=== PATIENT | male | born 1940 | race Caucasian/White ===

== ENCOUNTER 2017-07-16 10:55 | Outpatient (CLI) | payer MEDICARE ==
--- NOTE | 2017-07-16 13:51 | MRI ---
MR OF THE ABDOMEN WITH AND WITHOUT CONTRAST: Indication: Evaluate for choledocholithiasis. Comparison: ERCP 02-14-10 Technique: Multiplanar, multisequence MR images were obtained of the abdomen with and without contras t utilizing 20 cc of MultiHance and MRCP protocol. FINDINGS: The common bile duct remains enlarged measuring 1.7 cm. Gallbladder is surgically absent. There is la yered bile present within the hepatic biliary ducts as well as the common bile duct. There are some l ayering nondependent gas within portions of the left intrahepatic biliary system as well as the commo n bile duct. There are more serpiginous and punctate regions of low signal intensity which may reflec t gallbladder sludge or small stones. The pancreatic duct is of normal caliber. Visualized pancreas has a normal appearing signal intensity . Adrenal glands appear within normal limits. Spleen appears within normal limits. There are moderately prominent left renal peripelvic cysts. The largest is seen within the superior p ole measuring 3.5 cm. There is a 1 cm cyst involving the superior pole of the right kidney. No definite abnormal region of enhancement is evident within the liver, pancreas or spleen. Small cys ts are suspected within the superior pole of the spleen. No abnormal enhancement is seen involving th e intrahepatic biliary tree. IMPRESSION: 1. Post-surgical changes of prior cholecystectomy. There is pneumobilia present within the biliary sy stem slightly limiting image detail. There are suspected small stones and gallbladder sludge likely p resent within the common bile duct. 2. No evidence of active inflammatory change seen involving the pancreas. 3. Bilateral renal cysts. 4. No abnormal enhancement demonstrated. POS: [facility]
== END 2017-07-16 10:56 | disposition home or self-care (01) ==
LOC: MRI 10:55
PROVIDERS: ATTEND Internal Medicine Gastroenterology
DX: K80.50 Calculus of bile duct without cholangitis or cholecystitis without obstruction (principal); R10.13 Epigastric pain; N28.1 Cyst of kidney, acquired; Z90.49 Acquired absence of other specified parts of digestive tract; Z98.890 Other specified postprocedural states
CPT/HCPCS: 74183

== ENCOUNTER 2017-07-20 09:50 | Day surgery (SDC) | payer MEDICARE ==
[2017-07-17 16:27] VITALS: BMI 25.9
[2017-07-20] MEDS ORDERED: Iothalamate Meglumine 60% 50 ML VIAL FS ONE (11:45)
[2017-07-20] MEDS ORDERED: Indomethacin 50 MG SUPP ONE (12:02)
[2017-07-20] MEDS ORDERED: Midazolam HCl 2 mg/2 ml Vial ONE (12:12)
[2017-07-20] MEDS ORDERED: Fentanyl 100 MCG/2 ML VIAL ONE (12:12)
[2017-07-20] MEDS ORDERED: cefTRIAXone\\ROCEPHIN 2 GM in Sodium Chloride 0.9% 100 ML IVPB SCH (12:15)
[2017-07-20] MEDS ORDERED: Indomethacin 50 MG SUPP PR SCH (12:15)
[2017-07-20] MEDS ORDERED: ePHEDrine/0.9% NaCl/PF SYRINGE 50 mg/10 ml ONE (12:34)
[2017-07-20] MEDS ORDERED: Glycopyrrolate 0.2 MG/ML 5 ML SYRINGE ONE (12:34)
[2017-07-20] MEDS ORDERED: Ondansetron HCl/PF 4 MG/2 ML Vial ONE (12:34)
[2017-07-20] MEDS ORDERED: Propofol 200 MG/20 ML VIAL ONE (12:34)
[2017-07-20] MEDS ORDERED: Lidocaine 1% PF 5 ML VIAL ONE (12:34)
[2017-07-20] MEDS ORDERED: Dexamethasone 20 MG/5 ML VIAL ONE (12:34)
--- NOTE | 2017-07-20 13:48 | OP ---
DATE OF PROCEDURE: 07/20/2017 PROCEDURE PERFORMED: Endoscopic retrograde cholangiopancreatography with stone extraction and papill otomy. PHYSICIAN: Huber Morgan M.D. PREMEDICATION: Given by Anesthesiology department. PREPROCEDURE DIAGNOSIS: Evidence of choledocholithiasis on magnetic resonance cholangiopancreatograp hy. POSTPROCEDURE DIAGNOSES: 1. Choledocholithiasis. 2. Status post sphincterotomy extension. PROCEDURE IN DETAIL: Written consent was obtained prior to procedure. After adequate sedation, side -viewing endoscope was advanced down the stomach through pylorus into the duodenum. The ampulla was visualized with evidence of prior sphincterotomy. A 15 mm balloon was then cannulated into the commo n bile duct. Injection of contrast initially showed air bubbles that was evacuated. There were larg e over filling defects noted in the distal duct. The balloon was then used to sweep the duct and ext ract the filling defects. There were appears to be large coalescing cholesterol type stone that were extracted in three large pieces. Using a ultratome, the sphincterotomy site was further extended to enlarge the opening. A final sweep using the 15 mm balloon showed a normal occlusive cholangiogram with prompt flow after withdrawing the catheter. Patient tolerated the procedure well without any im mediate complication. ASSESSMENT: 1. Large distal common bile duct stone, status post extraction. 2. Status post sphincterotomy extension. RECOMMENDATIONS: 1. Observe and discharged to home. 2. Follow up LFT in 2 weeks.
--- NOTE | 2017-07-20 14:11 | RAD ---
ERCP: Date: 07/20/17 COMPARISON: 02/14/10. HISTORY: Choledocholithiasis. FINDINGS/IMPRESSION: Limited intraoperative fluoroscopic views from an ERCP were submitted for interpretation. The common bile duct is enlarged. No obvious filling defects are seen within the common bile duct. There is mild central intrahepatic biliary dilatation. POS: [facility]
== END 2017-07-20 15:00 | disposition home or self-care (01) ==
LOC: SDC 09:50
PROVIDERS: ATTEND Internal Medicine Gastroenterology
PROC: 0FC98ZZ Extirpation of Matter from Common Bile Duct, Via Natural or Artificial Opening Endoscopic (ICD-10-PCS; principal; 2017-07-20)
PROC: 0F798ZZ Dilation of Common Bile Duct, Via Natural or Artificial Opening Endoscopic (ICD-10-PCS; 2017-07-20)
DX: K80.50 Calculus of bile duct without cholangitis or cholecystitis without obstruction (principal); I10 Essential (primary) hypertension; E78.5 Hyperlipidemia, unspecified; I25.10 Atherosclerotic heart disease of native coronary artery without angina pectoris; N40.0 Benign prostatic hyperplasia without lower urinary tract symptoms; Z79.01 Long term (current) use of anticoagulants; Z79.82 Long term (current) use of aspirin; Z79.2 Long term (current) use of antibiotics; Z79.899 Other long term (current) drug therapy; Z95.1 Presence of aortocoronary bypass graft; Z90.49 Acquired absence of other specified parts of digestive tract
CPT/HCPCS: 74330; J0696; J1100; J2001; J2250; J2405; J2704; J3010; J7050; Q9961

== ENCOUNTER 2019-10-21 14:36 | Outpatient (CLI) | payer MEDICARE, OTHER ==
[2019-10-22 13:14] LABS: SARS-CoV-2 MS2 Positive; SARS-CoV-2 N Gene Negative; SARS-CoV-2 S Gene Negative; SARS-CoV-2 orf1ab Negative
== END 2019-10-21 14:37 | disposition home or self-care (01) ==
LOC: LABBT 14:36
PROVIDERS: ATTEND Internal Medicine Gastroenterology
DX: Z01.812 Encounter for preprocedural laboratory examination (principal); Z11.59 Encounter for screening for other viral diseases; K80.50 Calculus of bile duct without cholangitis or cholecystitis without obstruction; R94.5 Abnormal results of liver function studies; R10.13 Epigastric pain; Z86.010 Personal history of colon polyps
CPT/HCPCS: 87635; U0003

== ENCOUNTER 2019-10-26 06:28 | Day surgery (SDC) | payer MEDICARE ==
[2019-10-21 14:56] VITALS: BMI 26.6
[2019-10-26] MEDS ORDERED: Iothalamate Meglumine 60% 30 ML VIAL FS ONE (06:55)
[2019-10-26] MEDS ORDERED: Indomethacin 50 MG SUPP ONE (06:55)
[2019-10-26] MEDS ORDERED: Fentanyl 100 MCG/2 ML VIAL ONE (06:58)
[2019-10-26] MEDS ORDERED: Midazolam HCl 2 mg/2 ml Vial ONE (08:13)
[2019-10-26] MEDS ORDERED: Ketamine 50 MG/ML (10ML VIAL) ONE (08:14)
[2019-10-26] MEDS ORDERED: SUGAMMADEX SODIUM 200 MG/2 ML VIAL ONE (09:12)
[2019-10-26] MEDS ORDERED: cefTRIAXone\\ROCEPHIN 2 GM VIAL ONE (09:13)
[2019-10-26] MEDS ORDERED: PROPOFOL 200 MG/20 ML VIAL ONE (09:25)
[2019-10-26] MEDS ORDERED: Dexamethasone 20 MG/5 ML VIAL ONE (09:25)
[2019-10-26] MEDS ORDERED: EPHEDRINE 25 MG/5 ML SYRINGE ONE (09:25)
[2019-10-26] MEDS ORDERED: Rocuronium Bromide 10 MG/ML (10ML VIAL) ONE (09:25)
[2019-10-26] MEDS ORDERED: PHENYLEPHRINE-NS 100 MCG/ML 10 ML SYRINGE ONE (09:25)
[2019-10-26] MEDS ORDERED: Ketorolac Tromethamine 30 MG/ML VIAL ONE (09:25)
[2019-10-26] MEDS ORDERED: Lidocaine 1% PF 5 ML VIAL ONE (09:25)
[2019-10-26] MEDS ORDERED: Ondansetron PF 4 MG/2 ML Vial ONE (09:25)
[2019-10-26] MEDS ORDERED: hydrALAZINE 20 MG/ML VIAL ONE (10:23)
[2019-10-26] MEDS ORDERED: hydrALAZINE 20 MG/ML VIAL SLOW IVP SCH (10:30)
--- NOTE | 2019-10-26 11:39 | OP ---
DATE OF PROCEDURE: 10/26/2019 PROCEDURE: Endoscopic retrograde cholangiopancreatography with stone extraction. PREMEDICATION: Given by Anesthesiology Department. PREPROCEDURE DIAGNOSES: 1. Abdominal pain with abnormal liver profile. 2. History of choledocholithiasis. POSTPROCEDURE DIAGNOSIS: Three large stones in dilated common bile duct, status post extraction. DESCRIPTION OF PROCEDURE: Written consents were obtained prior to procedure. After adequate sedation, the side-viewing endoscope was advanced down the stomach to the pylorus into the duodenum. The previous sphincterotomy was seen and appears to be widely patent. A 15 to 18 biliary balloon was then used to cannulate the common bile duct. The balloon was deployed and contrast was administered. The fluoroscopy was personally reviewed by me. The common bile duct was dilated to approximately 16 mm to 17 mm and tapered somewhat toward the distal end. Three filling defects measuring between 8 to 12 mm were seen. The intrahepatic biliary tree did fill, then it was free of any filling defect. The balloon was used to extract the smaller defect. A biliary basket was then attempted to use to extract the remainder stone, but it was unsuccessful in wrapping around the stone despite prolonged attempt. Decision was made to place a biliary stent. The guide apparatus and catheter were then placed into the bile duct. A 5 cm 11.5 Guamanian biliary stent was then placed, advanced to the endoscope. However, the stent was stuck at the end of the scope and could not be removed. The instrument was then removed. Repeat endoscopy was performed using a new side-viewing endoscope. The stomach pressure was then used to cannulate the bile duct, then was able to crush the stone. The remaining debris was able to be extracted using a 15 biliary balloon. Occlusive cholangiogram was performed and was free of any defect with prompt excretion of contrast. The instrument was then fully removed. The patient tolerated the procedure well. ASSESSMENT: Choledocholithiasis, 3 large stones, removed. PLAN: 1. The patient will be discharged home. 2. Will follow up Telehealth in 2 weeks with repeat LFT. Job ID: [id number] MTDD
--- NOTE | 2019-10-26 12:15 | RAD ---
ERCP: HISTORY: Biliary stones. FINDINGS: A series of 5 films were presented for interpretation. These show filling defects within the common bile duct with a balloon catheter in place. Final images show a definite decrease in the number of f illing defects. On the final image I cannot definite exclude there being a filling defect near the b ifurcation into the right and left hepatic ducts. IMPRESSION: ERCP findings as above. POS: [facility]
== END 2019-10-26 11:35 | disposition home or self-care (01) ==
LOC: SDC 06:28
PROVIDERS: ATTEND Internal Medicine Gastroenterology
PROC: 0FC98ZZ Extirpation of Matter from Common Bile Duct, Via Natural or Artificial Opening Endoscopic (ICD-10-PCS; principal; 2019-10-26)
DX: K80.50 Calculus of bile duct without cholangitis or cholecystitis without obstruction (principal); K21.9 Gastro-esophageal reflux disease without esophagitis; I10 Essential (primary) hypertension; E78.00 Pure hypercholesterolemia, unspecified; I48.91 Unspecified atrial fibrillation; Z79.01 Long term (current) use of anticoagulants; Z79.82 Long term (current) use of aspirin; Z79.899 Other long term (current) drug therapy; Z86.010 Personal history of colon polyps; Z91.040 Latex allergy status; Z91.048 Other nonmedicinal substance allergy status; Z95.1 Presence of aortocoronary bypass graft
CPT/HCPCS: 74330; J0360; J0696; J1100; J1610; J1885; J2001; J2250; J2405; J2704; J3010

== ENCOUNTER 2020-03-16 08:49 | Outpatient (CLI) | payer MEDICARE, OTHER ==
[2020-03-17 14:55] LABS: SARS-CoV-2 MS2 Positive; SARS-CoV-2 N Gene Negative; SARS-CoV-2 S Gene Negative; SARS-CoV-2 by NAA Not Detected (NotDetected); SARS-CoV-2 orf1ab Negative
== END 2020-03-16 08:50 | disposition home or self-care (01) ==
LOC: LABBT 08:49
PROVIDERS: ATTEND Internal Medicine Gastroenterology
DX: Z20.828 Contact with and (suspected) exposure to other viral communicable diseases (principal)
CPT/HCPCS: 87635; U0003

== ENCOUNTER 2020-03-21 08:30 | Day surgery (SDC) | payer MEDICARE ==
[2020-03-20 14:50] VITALS: BMI 26.6
[2020-03-21] MEDS ORDERED: Levofloxacin 500 mg/D5W 100 ml Premix Bag ONE (09:24)
[2020-03-21] MEDS ORDERED: Fentanyl 100 MCG/2 ML VIAL ONE (10:36)
[2020-03-21] MEDS ORDERED: PROPOFOL 200 MG/20 ML VIAL ONE (10:38)
[2020-03-21] MEDS ORDERED: PHENYLEPHRINE-NS 100 MCG/ML 10 ML SYRINGE ONE (10:38)
[2020-03-21] MEDS ORDERED: Ondansetron PF 4 MG/2 ML Vial ONE (10:38)
[2020-03-21] MEDS ORDERED: Rocuronium Bromide 10 MG/ML (10ML VIAL) ONE (10:38)
[2020-03-21] MEDS ORDERED: Dexamethasone 20 MG/5 ML VIAL ONE (10:38)
[2020-03-21] MEDS ORDERED: Lidocaine 1% PF 5 ML VIAL ONE ×2 (10:38)
[2020-03-21] MEDS ORDERED: Iothalamate Meglumine 60% 50 ML VIAL FS ONE (10:46)
[2020-03-21] MEDS ORDERED: Indomethacin 50 MG SUPP ONE ×3 (10:46→10:51)
[2020-03-21] MEDS ORDERED: SUGAMMADEX SODIUM 200 MG/2 ML VIAL ONE (10:48)
[2020-03-21] MEDS ORDERED: cefTRIAXone\\ROCEPHIN 2 GM VIAL ONE (11:07)
[2020-03-21] MEDS ORDERED: Sodium Chloride 0.9% 100 ML ONE (11:08)
[2020-03-21] MEDS ORDERED: Phenylephrine 10 MG/ML VIAL ONE (11:46)
--- NOTE | 2020-03-21 12:11 | RAD ---
EXAM: ERCP HISTORY: Cholelithiasis COMPARISON: None FINDINGS: Limited intraoperative fluoroscopic views were taken during a an ERCP. Common bile duct is enlarged. There appear to be multiple filling defects in the common bile duct on the initial images which are not seen on the latter images after a balloon was placed. No leakage from the common bile duct. No abnormality of the intrahepatic bile ducts. IMPRESSION: Likely removal of common bile duct material
[2020-03-21] MEDS ORDERED: Labetalol HCl 100 MG/20 ML VIAL ONE (12:22)
[2020-03-21] MEDS ORDERED: Morphine 4 MG/ML VIAL ONE (12:38)
[2020-03-21] MEDS ORDERED: hydrALAZINE 20 MG/ML VIAL ONE (12:53)
[2020-03-21 14:31] LABS: #Lymphocytes 0.8 thou/uL (1.20-3.40); #Monocytes 0.1 thou/uL (0.11-0.59); #Neutrophils 7.3 thou/uL (1.40-6.50); %Basophils 0.3 % (0.0-1.0); %Eosinophils 0.3 % (0.0-10.0); %Lymphocytes 9.5 % (21.0-51.0); Hemoglobin 16.1 g/dL (14.0-18.0); Mean Corpuscular HGB CONC 32.5 g/dL (32.0-36.0); Mean Corpuscular Hemoglobin 31.4 pg (27.0-31.0); Mean Corpuscular Volume 96.5 fL (78.0-98.0); Platelet Count 220 thou/uL (130-400); RBC Distribution Width 13.4 % (11.5-14.5); Red Blood Cell (RBC) Count 5.14 mill/uL (4.70-6.10); White Blood Cell (WBC) Count 8.2 thou/uL (4.8-10.8)
[2020-03-21 14:38] LABS: INR-International Normal Ratio 1.1; PTT 29.1 sec (22.9-36.1); Prothrombin Time 14.7 sec (12.0-14.7)
[2020-03-21 14:52] LABS: Anion Gap 16 mmol/L (10-20); BUN (Urea Nitrogen) 14 mg/dL (8.4-25.7); Calc. Creatinine Clearance 72 mL/min (70-130); Calcium 8.8 mg/dL (7.8-10.44); Carbon Dioxide 24 mmol/L (23-31); Chloride 104 mmol/L (98-107); Estimated GFR-MDRD 77; Glucose 128 mg/dL (83-110); Potassium 4.4 mmol/L (3.5-5.1); Sodium 140 mmol/L (136-145)
--- NOTE | 2020-03-21 17:12 | OP ---
DATE OF PROCEDURE: 03/21/2020 PROCEDURE PERFORMED: Endoscopic retrograde cholangiopancreatography with papillotomy and biliary stent placement and stone extraction. PREMEDICATION: Given by Anesthesiology Department. PREPROCEDURE DIAGNOSIS: Choledocholithiasis by MRCP. POSTPROCEDURE DIAGNOSES: 1. Large 2 cm stone and a smaller 1 cm stone. 2. Dilated common bile duct. 3. Papillotomy extension. DESCRIPTION OF PROCEDURE: Written consents were obtained prior to procedure. After adequate sedation, the side-viewing endoscope was advanced down the stomach through the pylorus into duodenum. The ampulla was visualized. The previous papillotomy site was visualized. The opening appears to have become smaller, stricturing down. Papillotome was introduced into the common bile duct with ease. Opacification of the bile duct showed a large 2 cm oval shaped stone in the mid common bile duct and a smaller 1 cm stone in the upper bile duct. The bile duct was dilated to approximately 15 mm. The papillotomy site was extended using the papillotome without bleeding or complication. A 3 cm biliary basked was used and snared the stone and was crushed. The upper stone was also crushed. A 15 mm balloon was then used to sweep the duct with extraction of multiple debris. Multiple sweeps were performed. Occlusive cholangiogram was performed twice with good opacification without any apparent remaining choledocholithiasis. There was prompt excretion of contrast. The balloon was then removed. A guide apparatus was then tunneled into the common bile duct. An 11.5-Guamanian 5 cm stent was then placed into the bile duct with good placement. This was to ensure adequate drainage and prevent the papillotomy site from stretching down. The guide catheter was then removed. The stent was in good position. There was good excretion of contrast. The side-viewing endoscope was removed. ASSESSMENT: Large choledocholithiasis x2, status post papillotomy extension, stone crushing and removal, and biliary stent placement. PLAN: 1. Ursodiol 500 mg p.o. b.i.d. 2. Repeat ERCP for stent removal and repeat cholangiogram in 8 to 10 weeks. Job ID: [id number]
== END 2020-03-21 14:17 | disposition home or self-care (01) ==
LOC: SDC 08:30
PROVIDERS: ATTEND Internal Medicine Gastroenterology
PROC: 0F798DZ Dilation of Common Bile Duct with Intraluminal Device, Via Natural or Artificial Opening Endoscopic (ICD-10-PCS; principal; 2020-03-21)
PROC: 0FC98ZZ Extirpation of Matter from Common Bile Duct, Via Natural or Artificial Opening Endoscopic (ICD-10-PCS; 2020-03-21)
DX: K80.50 Calculus of bile duct without cholangitis or cholecystitis without obstruction (principal); K83.8 Other specified diseases of biliary tract; K21.9 Gastro-esophageal reflux disease without esophagitis; I48.91 Unspecified atrial fibrillation; I10 Essential (primary) hypertension; E78.00 Pure hypercholesterolemia, unspecified; Z79.01 Long term (current) use of anticoagulants; Z79.899 Other long term (current) drug therapy; Z91.040 Latex allergy status; Z91.048 Other nonmedicinal substance allergy status; Z95.1 Presence of aortocoronary bypass graft
CPT/HCPCS: 43265; 43274; 74330; 80048; 85025; 85610; 85730; J1610; J0360; J0696; J1100; J1956; J2270; J2370; J2405; J2704; J3010; J3490

== ENCOUNTER 2020-05-11 06:38 | Outpatient (CLI) | payer MEDICARE ==
[2020-05-12 03:15] LABS: SARS-CoV-2 MS2 Positive; SARS-CoV-2 N Gene Negative; SARS-CoV-2 S Gene Negative; SARS-CoV-2 by NAA Not Detected (NotDetected); SARS-CoV-2 orf1ab Negative
== END 2020-05-11 06:39 | disposition home or self-care (01) ==
LOC: LABBT 06:38
PROVIDERS: ATTEND Internal Medicine Gastroenterology
DX: Z01.812 Encounter for preprocedural laboratory examination (principal); K80.50 Calculus of bile duct without cholangitis or cholecystitis without obstruction; Z20.828 Contact with and (suspected) exposure to other viral communicable diseases
CPT/HCPCS: 87635; U0003

== ENCOUNTER 2020-05-16 05:57 | Day surgery (SDC) | payer MEDICARE ==
[2020-05-15 10:51] VITALS: BMI 25.8
[2020-05-16] MEDS ORDERED: Fentanyl 100 MCG/2 ML VIAL ONE (06:58)
[2020-05-16] MEDS ORDERED: Iothalamate Meglumine 60% 50 ML VIAL FS ONE (07:28)
[2020-05-16] MEDS ORDERED: Indomethacin 50 MG SUPP ONE ×2 (07:29)
[2020-05-16] MEDS ORDERED: cefTRIAXone\\ROCEPHIN 1 GM VIAL ONE (08:32)
[2020-05-16] MEDS ORDERED: Sodium Chloride 0.9% 100 ML ONE (08:32)
[2020-05-16] MEDS ORDERED: hydrALAZINE 20 MG/ML VIAL ONE (09:48)
[2020-05-16] MEDS ORDERED: Labetalol HCl 100 MG/20 ML VIAL ONE (10:06)
--- NOTE | 2020-05-16 10:39 | OP ---
DATE OF PROCEDURE: 05/16/2020 PROCEDURES PERFORMED: Endoscopic retrograde cholangiopancreatography with a stent extraction and stone extraction. PREMEDICATION: Given by Anesthesiology Department. PREPROCEDURE DIAGNOSES: 1. History of choledocholithiasis. 2. Biliary stent placement, 02/2020, for removal. POSTPROCEDURE DIAGNOSES: 1. Stent migrated within the common bile duct, successfully retrieved and removed. 2. Multiple choledocholithiasis. DESCRIPTION OF PROCEDURE: Written consents were obtained prior to procedure. After adequate sedation, the side-viewing endoscope was advanced down the stomach through the pylorus into the duodenum. Whereas visualized, the mucosa appeared normal. The ampulla was visualized and appeared widely patent. However, the stent was not seen. Fluoroscopy showed that the stent has migrated in the upper common bile duct. A papillotome was then used to snare the flange of this stent, but unsuccessful. A 2.5 cm biliary basket was used, but was also unsuccessful. A 15 mm balloon was then cannulated into the upper common bile duct. The balloon was insufflated and the stent was able to be pulled down, past through the ampulla. Multiple soft yellow stones were extracted in the process. The balloon was removed. The biliary stent was then able to retrieve using a snare and removed entirely. Repeat endoscopy was performed. Cholangiogram was performed using a 15 mm balloon. Multiple distal common bile duct filling defect was seen. These were able to be removed with the balloon. Repeat cholangiogram was normal. There was prompt excretion of contrast. The patient tolerated the procedure well. ASSESSMENT: 1. Migrated stent, successfully retrieved and removed. 2. Multiple cholesterol type stone, status post extraction. PLAN: 1. Resume Eliquis tomorrow. 2. Monica 250 mg t.i.d. given history of recurrent choledocholithiasis. Job ID: [id number] [facility], [place]
--- NOTE | 2020-05-16 12:53 | RAD ---
ERCP 4 views: 05/16/2020 HISTORY: 80-year-old male with choledocholithiasis FINDINGS: A total of 4 fluoroscopic spot images are submitted. It is uncertain whether the order presented repr esents the actual sequence of events, or whether the images have been mixed up regarding time. Image time stamped 9:53 AM demonstrates a plastic biliary stent with upper portion either at the bifu rcation of the common hepatic duct or left hepatic duct. There is contrast material within dilated common hepatic duct and intrahepatic biliary radicles. There is little contrast in the common bile du ct. Catheter tip is in the expected location of the mid to lower common bile duct. Cholecystectomy clips are visualized. Image time stamped 10:04 AM demonstrates contrast material throughout the dilated common bile duct, c ommon hepatic duct, and intrahepatic biliary radicles. There is no biliary stent on this image. Inflated balloon is present at the mid-lower common bile duct. There is contrast material within a lo op of bowel. Image time stamped 10:05 AM shows the same findings as 10:04 AM, but without the balloon. Image time stamped 10:07 AM demonstrates the same findings as above, but with the balloon at the very inferior portion of the common bile duct, perhaps at the ampulla of Vater. IMPRESSION: 1.) Diffuse dilation of the entire biliary tree. 2) ongoing balloon sweeping of the common bile duct. 3) biliary stent is present in only one of the 4 images.
== END 2020-05-16 11:25 | disposition home or self-care (01) ==
LOC: SDC 05:57
PROVIDERS: ATTEND Internal Medicine Gastroenterology
PROC: 0FC98ZZ Extirpation of Matter from Common Bile Duct, Via Natural or Artificial Opening Endoscopic (ICD-10-PCS; principal; 2020-05-16)
PROC: 0FPB8DZ Removal of Intraluminal Device from Hepatobiliary Duct, Via Natural or Artificial Opening Endoscopic (ICD-10-PCS; 2020-05-16)
DX: K80.50 Calculus of bile duct without cholangitis or cholecystitis without obstruction (principal); T85.520A Displacement of bile duct prosthesis, initial encounter; I48.91 Unspecified atrial fibrillation; I10 Essential (primary) hypertension; K21.9 Gastro-esophageal reflux disease without esophagitis; Z79.01 Long term (current) use of anticoagulants; Z79.899 Other long term (current) drug therapy; Z91.040 Latex allergy status; Z91.048 Other nonmedicinal substance allergy status; Z95.1 Presence of aortocoronary bypass graft
CPT/HCPCS: 74330; J0360; J0696; J1610; J3010; J3490

== ENCOUNTER 2020-11-02 16:00 | Outpatient (CLI) | payer MEDICARE ==
[2020-11-03 00:46] LABS: SARS-CoV-2 PCR by NAA Not Detected (NotDetected)
== END 2020-11-02 16:01 | disposition home or self-care (01) ==
LOC: LABBT 16:00
PROVIDERS: ATTEND Internal Medicine Gastroenterology
DX: Z01.812 Encounter for preprocedural laboratory examination (principal); K80.50 Calculus of bile duct without cholangitis or cholecystitis without obstruction; Z20.822 Contact with and (suspected) exposure to COVID-19
CPT/HCPCS: U0003; U0005; 87635

== ENCOUNTER 2020-11-05 05:51 | Day surgery (SDC) | payer MEDICARE ==
[2020-11-02 10:37] VITALS: BMI 25.5
[2020-11-05] MEDS ORDERED: Fentanyl 100 MCG/2 ML VIAL ONE (06:11)
[2020-11-05] MEDS ORDERED: Famotidine/PF 20 mg/2ml Vial ONE (06:11)
[2020-11-05] MEDS ORDERED: SUGAMMADEX SODIUM 500 MG/5 ML VIAL ONE (06:12)
[2020-11-05] MEDS ORDERED: Indomethacin 50 MG SUPP ONE (06:48)
[2020-11-05] MEDS ORDERED: Iothalamate Meglumine 60% 50 ML VIAL FS ONE (06:49)
[2020-11-05] MEDS ORDERED: PROPOFOL 200 MG/20 ML VIAL ONE (07:50)
[2020-11-05] MEDS ORDERED: Rocuronium Bromide 10 MG/ML (10ML VIAL) ONE (07:50)
[2020-11-05] MEDS ORDERED: Lidocaine 1% PF 5 ML VIAL ONE (07:50)
[2020-11-05] MEDS ORDERED: PHENYLEPHRINE-NS 100 MCG/ML 10 ML SYRINGE ONE (07:50)
[2020-11-05] MEDS ORDERED: Dexamethasone 20 MG/5 ML VIAL ONE (07:50)
[2020-11-05] MEDS ORDERED: Metoclopramide HCl 10 MG/2 ML VIAL ONE (07:50)
[2020-11-05] MEDS ORDERED: Ondansetron PF 4 MG/2 ML Vial ONE (07:50)
[2020-11-05] MEDS ORDERED: Ketorolac Tromethamine 30 MG/ML VIAL ONE (07:50)
[2020-11-05] MEDS ORDERED: cefTRIAXone\\ROCEPHIN 1 GM VIAL ONE (07:52)
== END 2020-11-05 11:30 | disposition home or self-care (01) ==
LOC: SDC 05:51
PROVIDERS: ATTEND Internal Medicine Gastroenterology
PROC: 0F798ZZ Dilation of Common Bile Duct, Via Natural or Artificial Opening Endoscopic (ICD-10-PCS; principal; 2020-11-05)
PROC: 0FC98ZZ Extirpation of Matter from Common Bile Duct, Via Natural or Artificial Opening Endoscopic (ICD-10-PCS; 2020-11-05)
DX: K80.50 Calculus of bile duct without cholangitis or cholecystitis without obstruction (principal); K21.9 Gastro-esophageal reflux disease without esophagitis; I48.91 Unspecified atrial fibrillation; I10 Essential (primary) hypertension; E78.00 Pure hypercholesterolemia, unspecified; Z86.010 Personal history of colon polyps; Z79.01 Long term (current) use of anticoagulants; Z79.82 Long term (current) use of aspirin; Z79.899 Other long term (current) drug therapy; Z91.040 Latex allergy status; Z95.1 Presence of aortocoronary bypass graft
CPT/HCPCS: 43262; 43264; 74330; Q9961; J0696; J1100; J1885; J2405; J2704; J2765; J3010; S0028